=== PATIENT | male | born 2000 | race Caucasian/White ===

== ENCOUNTER 2023-04-23 07:04 | Outpatient (REF) | payer OTHER, SELFPAY ==
[2023-04-23 11:27] LABS: MANUAL DIFF FLAG NO
[2023-04-23 11:35] LABS: Basophils Percent Auto 0.6 % (0-2); Eosinophils Absolute Auto 0.1 X10*3/uL (0.0-0.4); Eosinophils Percent Auto 1.8 % (0-4); Hematocrit 47.3 % (42.0-52.0); Hemoglobin 15.6 g/dl (14.0-18.0); Imm Gran Abs Auto 0.01 X10*3/uL (0.00-0.03); Imm Gran Pct Auto 0.1 % (0.0-0.4); Lymphocytes Absolute Auto 2.9 X10*3/uL (1.2-4.9); Lymphocytes Percent Auto 42.9 % (20-40); Mean Corpuscular Hemoglobin 28.3 pg (27.0-33.0); Mean Corpuscular Volume 85.7 fL (80.0-98.0); Monocytes Absolute Auto 0.8 X10*3/uL (0.1-1.2); Neutrophils Percent Auto 43.6 % (45-73); Platelet Count 262 X10*3/uL (160-400); Red Blood Count 5.52 X10*6/uL (4.60-5.80); Red Cell Distribution Width 12.3 % (11.0-16.0); White Blood Count 6.8 X10*3/uL (4.8-10.8)
[2023-04-23 12:15] LABS: Alanine Aminotransferase 20 U/L (0-40); Albumin Level 4.6 g/dL (3.5-5.0); Alkaline Phosphatase 93 U/L (39-117); Anion Gap 15 (12-20); Aspartate Amino Transferase 29 U/L (5-37); Bilirubin Total 1.6 mg/dL (0.0-1.0); Blood Urea Nitrogen 18 mg/dL (9-16); Calcium 10.6 mg/dL (8.4-10.2); Carbon Dioxide 25 mmol/L (22-29); Chloride 105 mmol/L (96-108); Cholesterol 145 mg/dL; Estimated Glomerular Filt Rate > 60; Glucose Fasting 82 mg/dL (60-99); HDL Cholesterol 34 mg/dL; LDL Cholesterol Calculated 94 mg/dl; Potassium 4.9 mmol/L (3.3-5.1); Sodium 140 mmol/L (135-145); Total Protein 7.4 g/dL (6.5-8.0); Triglycerides 86 mg/dL
[2023-04-23 12:17] LABS: TSH reflex Free T4 1.18 uIU/mL (0.32-4.0)
[2023-04-23 12:27] LABS: Erythrocyte Sedimentation Rate 2 MM/HR (0-15)
[2023-04-24 05:08] LABS: Syphilis Screen Nonreactive (Nonreactive)
[2023-04-24 05:41] LABS: HBS Num1 0.53 mIU/mL (0-7.99); HBc Num1 0.06 S/CO (0.00-0.79); HBsAGNum1 0.38 S/CO (0.00-0.99); HIV AB/AG Nonreactive (Nonreactive); HIV Num 1 0.06 S/CO (0.00-0.99); Hepatitis B Core Antibody Nonreactive (Nonreactive); Hepatitis B Surface Antigen Negative (Negative); ~HepC Num1 0.06 S/CO (0.00-0.79); ~Hepatitis B Surface Antibody NONREACTIVE (Nonreactive); ~Hepatitis C Antibody Nonreactive (Nonreactive)
== END 2023-04-23 07:05 | disposition home or self-care (01) ==
LOC: HO.WFDLDS 07:04
PROVIDERS: Visit Provider Family Medicine
DX: Z00.00 Encounter for general adult medical examination without abnormal findings (principal); Z11.4 Encounter for screening for human immunodeficiency virus [HIV]; M26.629 Arthralgia of temporomandibular joint, unspecified side; Z20.2 Contact with and (suspected) exposure to infections with a predominantly sexual mode of transmission
CPT/HCPCS: 36415; 80053; 80061; 84443; 85025; 85652; 86704; 86706; 86780; 86803; 87340; 87389

== ENCOUNTER 2023-06-19 08:17 | Outpatient (REF) | payer OTHER, SELFPAY ==
[2023-06-19 11:34] LABS: Appearance Urine Clear; Color Urine Yellow; Glucose Urine UA Negative (Negative); Leukocyte Esterase Urine Negative (Negative); Nitrite Urine Negative (Negative); PH 5.5 (5.0-9.0); Urine Blood Negative (Negative); Urine Ketones Negative (Negative); Urine Protein Negative (Neg-Trace)
[2023-06-19 12:20] LABS: Creatinine Urine 152.99 mg/dL; Microalbumin Urine < 5.0 mg/L
[2023-06-19 15:16] LABS: CT PCR NOT DETECTED (Not Detect.); NG PCR NOT DETECTED (Not Detect.)
== END 2023-06-19 08:18 | disposition home or self-care (01) ==
LOC: HO.WFDLDS 08:17
PROVIDERS: Visit Provider Family Medicine
DX: Z11.3 Encounter for screening for infections with a predominantly sexual mode of transmission (principal); Z00.00 Encounter for general adult medical examination without abnormal findings; I10 Essential (primary) hypertension
CPT/HCPCS: 0353U; 81003; 82043

== ENCOUNTER 2023-06-29 08:15 | Outpatient (AMB) | payer OTHER, SELFPAY ==
--- NOTE | 2023-06-29 08:34 | MHC.PC.OV ---
Vital Signs 06/29/23 08:35 Height 5 ft 11 in Weight 226 lb BMI 31.5 BP 120/73 Blood Pressure Location Lt brachial Position Sitting Respiration 16 Pulse 49 L Pulse Source Pulse Oximeter Temp 98.4 F Temp Source Oral Pulse Oximetry (%) 98 Oxygen Delivery Method Room Air Intake Visit Reasons: CPE with f/u labs and health maintenance Intake Note: Patient is here for his physical and to follow up on labs. Allergies No Known Allergies Allergy (Verified 06/29/23 08:44) Medication List - Last Reconciled 06/29/23 by Kristi Olmstead CNP gabapentin (Neurontin) 200 mg (2 x 100 mg) PO BEDTIME 30 days Tobacco use date assessed: 06/29/23 Dental Screening Dental Screen Date: 06/29/23 Did you have a dental visit in the last 12 months?: Yes Did you have a dental problem in the last 6 months where you did not have access to dental care?: No Was dental information given to patient?: Patient has dentist HPI HPI Comments History of Present Illness Details 23 y/o male presents for a complete physical exam. He offers no complaint at this time. He recently had routine in STD blood work. [facility] Family History Maternal Aunt Diabetes Social History Housing: House Patient Tobacco Use Status: Never used Tobacco e-Cigarette/Vaping Use: Never Used service: No Current occupational status: employed Current occupation: lens outside sales representative insurance Cognitive needs: No Hearing needs: No Vision needs: No Review of Systems Const Details: Denies chills, Denies fatigue, Denies fever(s), Denies headache(s) and Denies weakness HEENT Denies change in vision, Denies dizziness, Denies headache(s), Denies hearing loss, Denies nasal congestion, Denies sinus pain, Denies sinus pressure and Denies sore throat Card Denies chest pain, Denies lightheadedness, Denies dyspnea and Denies other (palpitations) Resp Denies cough, Denies dyspnea and Denies wheezing GI Denies abdominal pain, Denies melena, Denies hematochezia, Denies change in bowel habits, Denies dyspepsia and Denies nausea Denies hematuria and Denies dysuria Musc Denies abnormal gait, Denies myalgias, Denies arthralgias, Denies numbness and Denies tingling Skin/Breast Denies rash, Denies unusual bruising and Denies wounds Neuro Denies abnormal gait, Denies dizziness, Denies headache(s), Denies memory loss, Denies numbness, Denies Sensory deficit (Neuro), Denies tingling and Denies weakness Psych Denies anxiety, Denies depression and Denies memory loss Endo Denies cold intolerance, Denies fatigue, Denies heat intolerance, Denies polydipsia and Denies polyuria Nick/Lymph Denies easy bleeding and Denies easy bruising Aller/Immun Denies wheezing Physical exam (Primary Care) Vital Signs: Last Vital Signs Temp 98.4 F 06/29/23 08:40 Pulse 49 L 06/29/23 08:40 BP 120/73 06/29/23 08:40 Pulse Ox 98 06/29/23 08:40 BMI result Body Mass Index 31.5 Tobacco/Smoking Status: Tobacco use Status Tobacco use date assessed 06/29/23 06/29/23 08:41 Patient Tobacco Use Status Never used Tobacco 06/29/23 08:41 e-Cigarette/Vaping Use Never Used 06/29/23 08:41 Const Other: General: no acute distress, well developed, alert and awake Nutritional Appearance: well nourished Orientation/consciousness: patient oriented x3 HENMT Head: Yes normocephalic and Yes atraumatic Ears: hearing grossly normal bilaterally and TM's normal bilaterally General nose exam: Normal external nose present and Normal nares present Mouth: Normal oral and palatal mucosa present and moist mucous membranes Teeth and gingiva: dentition normal Throat: Yes oropharynx normal Eyes Pupils: Equal, round and reactive pupils present and Pupil accommodation reflex normal EOM: EOMs intact bilaterally Neck Neck: Yes normal visual inspection, Yes no lymphadenopathy and Yes trachea midline Thyroid: Thyroid normal Carotids: no bruits Lymphatic: no lymphadenopathy noted Chest Chest palpation & inspection: normal inspection of the chest Resp Effort & Inspection: normal respiratory effort Auscultation: clear to auscultation bilaterally Cardio Rate: regular rate Rhythm: regular rhythm Heart sounds: S1 normal heart sound present, S2 normal heart sound present, no gallops, no murmurs and no rubs Bruits: no abdominal aortic bruits and no carotid bruits GI Palpation (GI): No Abdominal aortic bruit present, Soft to palpation, nontender, No hepatosplenomegaly present and No Rebound tenderness present Auscultation: normal bowel sounds General: Yes no CVA tenderness Back/Spine/Pelvis Back: no CVA tenderness Cervical Spine: cervical ROM normal and No Cervical spine tenderness Thoracic/Lumbar Spine: thoraco-lumbar ROM normal, No pain with thoraco-lumbar ROM, No thoracic spinal tenderness and No lumbar spinal tenderness Skin General: warm and dry. Normal skin color. Normal skin turgor Lesions: 1 small mole noted to the right side of head Rashes: no rashes Trauma: no lacerations or abrasions Wounds: no wounds Nails: normal Neuro General: patient oriented x3, gait normal and CN's II-XI intact bilaterally Cranial nerves: Yes Equal, round and reactive pupils present Cognition (Neuro): normal cognition Gait exam (Neuro): Normal gait present Motor exam (neuro): 5/5 motor strength present throughout Sensory Exam: No Sensory deficit (Neuro) Deep tendon reflexes (DTR's): Right patellar reflex intensity grade: 2+ and Left patellar reflex intensity grade: 2+ Extrem General: Yes normal to inspection, No edema and No calf tenderness Psych Appearance: grossly normal Affect: normal affect Attitude: cooperative Thought process: Normal thought process present Assessment and Plan Assessment & Plan (1) Normal physical examination, routine: Code(s): Z00.00 - Encounter for general adult medical examination without abnormal findings Plan: No significant physical restrictions or limitations noted Advised to schedule his next physical with his PCP a year from today Follow-up with symptoms or concerns Verbalized understanding and agreed with treatment plan. (2) Low HDL (under 40): Code(s): E78.6 - Lipoprotein deficiency Plan: Recent lab results reviewed with the patient; findings were unremarkable except for low HDL Advised to limit foods high in saturated fat and avoid foods high trans fat Routine exercise encouraged Verbalized understanding and agreed with treatment plan. Coding Level of Care Code Est Pt Prev Care 18-39y(28513) Diagnoses Normal physical examination, routine Z00.00 Low HDL (under 40) E78.6
[2023-06-29 08:35] VITALS: BP 120/73; PULSE 49; RESP 16; TEMP 36.9; O2SAT 98; BMI 31.5
== END 2023-06-29 08:56 | disposition home or self-care (01) ==
PROVIDERS: PCP Family Medicine; Visit Provider Nurse Practitioner Family
DX: Z00.00 Encounter for general adult medical examination without abnormal findings (principal); E78.6 Lipoprotein deficiency
CPT/HCPCS: 99395

== ENCOUNTER 2024-04-01 09:00 | Outpatient (AMB) | payer OTHER, SELFPAY ==
--- NOTE | 2024-04-01 09:07 | MHC.OFFWIV ---
Intake Vital Signs 04/01/24 09:08 Height 5 ft 11 in Weight 216 lb BMI 30.1 BP 112/64 Blood Pressure Location Rt brachial Position Sitting Respiration 14 Pulse 63 Pulse Source Pulse Oximeter Temp 97 F Temp Source Temporal Artery Scan Pulse Oximetry (%) 99 Oxygen Delivery Method Room Air Intake Visit Reasons: Right hand pain Intake Note: Patient states he broke it a year and ahlf ago and has been hurting since. Patient is looking for a possible referral. 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 He notes that the pain has been ongoing since he broke the finger while playing in June 2023. He was evaluated at [facility] ED and followed up with with ortho there; was issued a splint which he had on the finger for 4-5 months; no medication was given. He notes that he experiences the pain only when making a fist or grabbing things. He has not been taking any pain medication. He continues to play basketball. He is seeking answers and solutions to his pain. [facility] Family History Maternal Aunt Diabetes Social History Housing: House Patient Tobacco Use Status: Never used Tobacco e-Cigarette/Vaping Use: Never Used service: No Current occupational status: employed Current occupation: lens solar installer Cognitive needs: No Hearing needs: No Vision needs: No Review of Systems Const Details: Const Denies chills, Denies fatigue, Denies fever(s), Denies headache(s) and Denies weakness ENT Denies change in vision, Denies dizziness, Denies headache(s), Denies hearing loss, Denies nasal congestion, Denies sinus pain, Denies sinus pressure and Denies sore throat Resp Denies cough, Denies dyspnea, Denies wheezing and Denies other (shortness of breath) Cardio Denies chest pain, Denies lightheadedness, Denies dyspnea and Denies other (palpitations) Musc Reports as per HPI Neuro Denies dizziness, Denies headache(s), Denies numbness, Denies tingling and Denies weakness Psych Denies anxiety, Denies depression, Denies memory?loss Endo Denies fatigue Aller/Immun Denies wheezing Physical Exam Vital Signs: Last Vital Signs Temp 97 F 04/01/24 09:08 Pulse 63 04/01/24 09:08 Resp 14 04/01/24 09:08 BP 112/64 04/01/24 09:08 Pulse Ox 99 04/01/24 09:08 Oxygen Delivery Method Room Air 04/01/24 09:08 BMI result Body Mass Index 30.1 Const Other: Const General: well developed; No acute distress Nutritional Appearance: well nourished Orientation/consciousness: patient oriented x3 HEENT Head: Yes normocephalic and Yes atraumatic Eyes General: appearance normal, both eyes and all related structures Pupils: Equal, round and reactive pupils present EOM: EOMs intact bilaterally Resp Effort & Inspection: normal respiratory effort Auscultation: clear to auscultation bilaterally Cardio Rate: regular rate Rhythm: regular rhythm Heart sounds: S1 normal heart sound present, S2 normal heart sound present, no gallops, no murmurs and no rubs Bruits: no abdominal aortic bruits and no carotid bruits Musc No tenderness, edema, erythema or overt trauma to the right 4th digit; ROM WNL Neuro General: patient oriented x3 and gait normal, no focal neuro deficit Cranial nerves: Yes Equal, round and reactive pupils present Psych Affect: normal affect Assessment & Plan Assessment & Plan (1) Right hand pain: Code(s): M79.641 - Pain in right hand Plan: Intermittent pain to the MCP joint of the right 4th digit x 1.5 year following basketball injury that fractured the joint No tenderness, edema, erythema or overt trauma to the right 4th digit; ROM WNL Naproxen 500 mg twice daily ordered. Advised to take as prescribed. Instructed on the risks, benefits, and potential adverse reactions of the medication X-ray ordered Encouraged to avoid playing basketball or exercise until healed. May take 4-8 weeks to completely healed Would referred to Ortho based on treatment response or x-ray results Follow-up with new or worsening symptoms Verbalized understanding and agreed with treatment plan Orders: Orders XR finger RT min 2V Today M79.641 - Pain in right hand Medications: New naproxen 500 mg PO BID PRN 60 tabs 2RF pain Coding Level of Care Code Est Pt Level 3 (42147) Diagnoses Right hand pain M79.641
[2024-04-01 09:08] VITALS: BP 112/64; PULSE 63; RESP 14; TEMP 36.1; O2SAT 99; BMI 30.1
== END 2024-04-01 09:33 | disposition home or self-care (01) ==
PROVIDERS: PCP Family Medicine; Visit Provider Nurse Practitioner Family
DX: M79.641 Pain in right hand (principal)
CPT/HCPCS: 99213

== ENCOUNTER 2024-04-01 14:56 | Outpatient (REF) | payer OTHER, SELFPAY ==
--- NOTE | ~2024-04-01 | XR_ITS ---
EXAMINATION: XR FINGER, RIGHT CLINICAL INFORMATION: Pain in right hand, pain fourth digit. Patient states broke right fourth digit one year ago and still painful. COMPARISON: None available. TECHNIQUE: 3 views of the right fourth digit. FINDINGS: Bone mineralization is normal. Joint spaces are preserved. There is mild asymmetric widening along the ventral aspect of the fourth digit DIP joint on the lateral view, possibly due to positioning. Subtle linear lucency along the volar base of the fourth digit middle phalanx may represent a normal variant versus nondisplaced fracture of indeterminate age extending to the articular surface. XR/XR finger RT min 2V IMPRESSION: Mild asymmetric widening along the ventral aspect of the fourth digit DIP joint on the lateral view, possibly due to positioning. Subtle linear lucency along the volar base of the fourth digit middle phalanx may represent a normal variant versus nondisplaced fracture of indeterminate age extending to the articular surface. Direct correlation with prior images is recommended for this patient with history of broken right fourth digit one year ago and if prior images are provided, an addendum will be dictated.
== END 2024-04-01 14:57 | disposition home or self-care (01) ==
LOC: HO.XRAY 14:56
PROVIDERS: PCP Family Medicine; Visit Provider Nurse Practitioner Family
DX: M79.641 Pain in right hand (principal)
CPT/HCPCS: 73140

== ENCOUNTER 2024-07-28 08:33 | Outpatient (AMB) | payer OTHER, SELFPAY ==
--- NOTE | 2024-07-28 08:36 | MHC.PC.OV ---
Vital Signs 07/28/24 08:37 Height 5 ft 11 in Weight 204 lb BMI 28.4 BP 110/62 Blood Pressure Location Lt brachial Position Sitting Pulse 65 Pulse Source Pulse Oximeter Pulse Oximetry (%) 98 Oxygen Delivery Method Room Air Intake Visit Reasons: CPE with F/U labs and health maint. Intake Note: Patient is here for a physical and would like a referral to [facility]. Box Maker Required: No Accompanied by: Self / Same As Patient Allergies No Known Allergies Allergy (Verified 07/28/24 08:41) Tobacco use date assessed: 07/28/24 Dental Screening Dental Screen Date: 07/28/24 Did you have a dental visit in the last 12 months?: Yes Did you have a dental problem in the last 6 months where you did not have access to dental care?: No Was dental information given to patient?: Patient has dentist HPI HPI Comments History of Present Illness Details This is a 24-year-old male presenting for a physical exam. His primary care provider is Dr. Torres. He attends school online and is studying CAD in engineering. He works. He does [employer] 5 or 6 days per week. He recently had an eye exam and got a pair of glasses for distance. He also recently saw his dentist. He does not smoke cigarettes. Denies drug use. He drinks alcohol socially. We reviewed his blood work from 04/21/2023. His total calcium level and total bilirubin were elevated. The patient will have the lab tests repeated. The patient requests a referral to [facility] for acne. Referral placed. Influenza and tetanus vaccinations were discussed. Patient says he will get the vaccines at the pharmacy. Declined tetanus vaccination in office. ROS: Constitutional: No unexplained weight loss, fever, chills, fatigue or night sweats. Eyes: No vision changes, blurry vision, double vision, eye pain, eye redness, eye discharge. ENT: No hearing loss, sneezing, congestion, runny nose or sore throat. Respiratory: No shortness of breath, cough or sputum production. Cardiovascular: No chest pain, chest pressure or chest discomfort. No palpitations or pedal edema. Gastrointestinal: No anorexia, nausea, vomiting or diarrhea. No abdominal pain or blood in stool. Genitourinary: No dysuria, hematuria, urinary frequency. No testicular masses, scrotal pain, swelling, penile discharge. Neurologic: No headache, dizziness, syncope, unilateral weakness, ataxia, numbness or tingling in the extremities. Musculoskeletal: No muscle pain, back pain, joint pain or swelling. Hematologic/Lymphatics: No bleeding or bruising. No painful lymph nodes. Skin: No itching. Endocrine: No cold or heat intolerance. No polyuria or polydipsia. Psychiatric: No depression or anxiety. No SI/HI. Physical exam: Constitutional: Alert, in no distress. Head: Normocephalic. Eyes: Pupils are equal, round and reactive to light. Extraocular muscles intact. Ear, Nose and Throat: Canals clear. TMs normal. Normal nasal mucosa. No nasal discharge. No oral lesions. Neck: Supple, Full range of motion. No lymphadenopathy. No palpable thyroid masses. Respiratory: Clear to auscultation. Cardiovascular: S1 S2 regular. No murmurs. Gastrointestinal: Abdomen soft, non-tender, non-distended. Normal bowel sounds. No palpable masses. Genitourinary: Patient declined examination. Neurologic: No focal neurological deficits. Symmetric patellar reflexes. Moves all extremities spontaneously. Sensation intact bilaterally. Skin: Mild acne. Musculoskeletal: No gross deformities. Normal range of motion. Extremities: Warm and well perfused. No clubbing, cyanosis or edema. Psychiatric: Normal mood and affect [facility] Medical History (Updated 07/28/24 @ 10:19 by MAGI Aquino) Acne TMJ pain dysfunction syndrome Surgical History (Updated 07/28/24 @ 08:44 by Gilda Brumfield CMA) No pertinent past surgical history Family History (Updated 07/28/24 @ 08:44 by Gilda Brumfield CMA) Maternal Aunt Diabetes Other Mental health disorder Substance use disorder Social History (Updated 07/28/24 @ 08:43 by Gilda Brumfield CMA) Household Members: Family Both parents involved: Yes Caregiver staying overnight: No Housing: House Are you a primary transitions rn care coordinator to a significant other at home: No Do you presently have visiting nurse or other home services: No 75 years or older and lives alone: No Alcohol intake: current Alcohol intake frequency: a few times a month Patient Tobacco Use Status: Never used Tobacco e-Cigarette/Vaping Use: Never Used service: No Current occupational status: employed Current occupation: lens body shop manager Cognitive needs: No Hearing needs: No Vision needs: No Questionnaire PHQ-9 Over the last 2 weeks, how often have you been bothered by any of the following problems? 1. Little interest or pleasure in doing things: not at all 2. Feeling down, depressed, or hopeless: not at all 3. Trouble falling or staying asleep, or sleeping too much: not at all 4. Feeling tired or having little energy: not at all 5. Poor appetite or overeating: not at all 6. Feeling bad about yourself - or that you are a failure or have let yourself or your family down: not at all 7. Trouble concentrating on things, such as reading the newspaper or watching television: not at all 8. Moving or speaking so slowly that other people could have noticed. Or the opposite - being so fidgety or restless that you have been moving around a lot more than usual: not at all 9. Thoughts that you would be better off or of hurting yourself in some way: not at all Total score: 0 Depression Screening Interpretation: Negative Depression Screening Done: Yes 93136 - PHQ-9 Billing: Yes Source: Developed by Drs. Darrius Powell, Le Pulido, Devin Jacob and colleagues, with an educational gilma from [employer]. Thrive Questionnaire Date Thrive assessed: 07/28/24 I am a: Patient What is your living situation today?: I have a steady place to live Within the past 12 months, did the food you bought not last and you didn't have the money to get more?: Never true Within the past 12 months, did you worry whether your food would run out before you got money to buy more?: Never true Do you have trouble paying for medicines?: No Do you have trouble getting transportation to medical appointments?: No Do you have trouble paying your heating and electricity bill?: No Do you have trouble taking care of your child, family member or friend?: No Do you have trouble with day-to-day activities such as bathing, preparing meals, shopping, managing finances, etc.?: No Are you currently unemployed and looking for a job?: No Are you interested in more education?: No Please select the resources that you would like help with: None Currently or been in a relationship where the following occur: No concerns reported THRIVE Score: 0 AUDIT C Alcohol Use Questionnaire (AUDIT-C) 1. How often do you have a drink containing alcohol?: 2-4 times a month 2. How many drinks containing alcohol do you have on a typical day when you are drinking?: 3 or 4 3. How often do you have six or more drinks on one occasion?: Never Total Score: 3 WILBER-7 AMB Questionnaire WILBER-7 Date WILBER - 7 assessed: 07/28/24 Feeling nervous, anxious, or on edge: 0 = Not at all Not being able to stop or control worryin = Not at all Worrying too much about different things: 0 = Not at all Trouble relaxin = Not at all Being so restless that it is hard to sit still: 0 = Not at all Becoming easily annoyed or irritable: 0 = Not at all Feeling afraid as if something awful might happen: 0 = Not at all Total WILBER-7 score (0-4 normal; 5-9 mild; 10-14 moderate; 15-21 severe): 0 Source: Developed by Drs. Darrius Powell, Le Pulido, Devin Jacob and colleagues, with an educational gilma from [employer]. WILBER-7 Assessment Billing WILBER-7 Assessment Tool: WILBER-7 Assessment 80856 Physical exam (Primary Care) Vital Signs: Last Vital Signs Pulse 65 07/28/24 08:37 BP 110/62 07/28/24 08:37 Pulse Ox 98 07/28/24 08:37 Oxygen Delivery Method Room Air 07/28/24 08:37 BMI result Body Mass Index 28.4 Tobacco/Smoking Status: Tobacco use Status Tobacco use date assessed 07/28/24 07/28/24 08:46 Patient Tobacco Use Status Never used Tobacco 07/28/24 08:43 e-Cigarette/Vaping Use Never Used 07/28/24 08:43 PHQ-9: PHQ-9 Score PHQ-9: Total score 0 07/28/24 09:19 Depression Screening Interpretation: Negative Thrive Assessment: Date of Thrive Assessment Date Thrive assessed 07/28/24 07/28/24 08:46 Currently or been in a relationship where the following occur: No concerns reported Assessment and Plan Assessment & Plan (1) Routine physical examination: Code(s): Z00.00 - Encounter for general adult medical examination without abnormal findings Plan: Patient is seen today for a routine physical. As part of this visit we reviewed the following issues, which are considered and essential part of preventative health in this age group: - Testicular cancer screening, which includes self exam teaching - Blood pressure screening annually - Cholesterol screening - Nutritional and exercise counseling - Counseling of injury prevention including fire prevention, smoke alarms and seat belt usage - Screening for depression - Prevention of and/or testing for infectious diseases- declined testing - Education about skin cancer - Recommendations about immunizations - Recommendation of an eye exam - Screening for substance abuse Plan Return in 1 year for a physical exam. Orders: Orders Comprehensive Met. Panel Today R17 - Unspecified jaundice Referrals Dermatology Referral L70.9 - Acne, unspecified Patient Instructions: Please return (nonfasting) to the lab for the follow up blood test to check metabolic function and your calcium and bilirubin level that were previously elevated. Coding Level of Care Code Est Pt Prev Care 18-39y(32816) Diagnoses Routine physical examination Z00.00 Additional Codes WILBER-7 Assessment Billing - WILEBR-7 Assessment Tool: WILBER-7 Assessment [id number] ([id number])
[2024-07-28 08:37] VITALS: BP 110/62; PULSE 65; O2SAT 98; BMI 28.4
== END 2024-07-28 09:01 | disposition home or self-care (01) ==
PROVIDERS: PCP Family Medicine; Visit Provider Physician Assistant Medical
DX: Z00.00 Encounter for general adult medical examination without abnormal findings (principal)

== ENCOUNTER → 2024-07-28 08:33 | Outpatient (BNVA) | payer OTHER, SELFPAY | PROVIDERS: PCP Family Medicine; Visit Provider Physician Assistant Medical | DX: Z00.00 Encounter for general adult medical examination without abnormal findings (principal) | CPT/HCPCS: 96127 ==